=== PATIENT | female | born 1995 | race Caucasian/White ===

== ENCOUNTER 2017-03-07 15:47 | Inpatient (IN) | payer BC ==
[~2017-03-07] VITALS: Ht 165.1 cm; Wt 55.8 kg
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
[2017-03-08] MEDS ORDERED: PERCOCET 5-3251 EACH PO (17:31)
== END 2017-03-08 18:00 | disposition disaster alternative care site (69) | DRG 581 ==
LOC: GACC 15:47 → G3N 17:40
PROVIDERS: ADMIT Internal Medicine
DX: T14.8 Other injury of unspecified body region (principal); J45.909 Unspecified asthma, uncomplicated; S09.91XA Unspecified injury of ear, initial encounter; S51.819A Laceration without foreign body of unspecified forearm, initial encounter; S61.213A Laceration without foreign body of left middle finger without damage to nail, initial encounter; S49.92XA Unspecified injury of left shoulder and upper arm, initial encounter; W25.XXXA Contact with sharp glass, initial encounter; W45.8XXA Other foreign body or object entering through skin, initial encounter; Y93.9 Activity, unspecified
CPT/HCPCS: J0690; J2250; J7120